=== PATIENT | female | born 1995 | race Caucasian/White ===

== ENCOUNTER 2019-10-14 18:51 | Emergency (ER) | payer OTHER, SELFPAY ==
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
[2019-10-14 19:13] VITALS: BP 123/79; PULSE 103; RESP 16; TEMP 37.2; O2SAT 99
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
== END 2019-10-14 20:05 | disposition home or self-care (01) ==
PROVIDERS: Emergency Provider Nurse Practitioner
DX: S66.911A Strain of unspecified muscle, fascia and tendon at wrist and hand level, right hand, initial encounter (principal); V47.5XXA Car driver injured in collision with fixed or stationary object in traffic accident, initial encounter; S80.01XA Contusion of right knee, initial encounter
CPT/HCPCS: 73110; 73564; 99204; G0463